=== PATIENT | female | born 1990 | race Caucasian/White ===

== ENCOUNTER 2016-07-01 12:38 | Emergency (ER) | payer OTHER ==
--- NOTE | 2016-07-01 13:41 | UC ---
Abdominal Pain Female HPI - HPI Summary HPI Summary: LLQ ABDOMINAL PAIN X 3 DAYS NO FEVER, NO N/V/D/C , NO URINARY SX - History of Current Complaint Chief Complaint: UCAbdominalPain Stated Complaint: LOWER LEFT ABD PAIN 2DAYS Time Seen by Provider: 07/01/16 13:22 Hx Obtained From: Patient Hx Last Menstrual Period: 06/27/16 ?: No Onset/Duration: Gradual Onset, Lasting Days - 3, Still Present Timing: Constant Severity Initially: Moderate Severity Currently: Moderate Location: Discrete At: LUQ, Discrete At: LLQ Radiates: No Character: Aching, Cramping Aggravating Factor(s): Nothing Alleviating Factor(s): Nothing Associated Signs and Symptoms: Positive: Vaginal Bleeding - HAVING HER PERIOD. Negative: Diaphoresis, Fever, Cough, Chest Pain, Dizzy, Back Pain, Constipation , Blood in Stool, Urinary Symptoms, Decreased Appetite, Vaginal Discharge, Nausea, Vomiting, Diarrhea, Other: Allergies/Adverse Reactions: Allergies Allergy/AdvReac Type Severity Reaction Status Date / Time No Known Allergies Allergy Verified 07/01/16 13:05 Home Medications: Home Medications Ibuprofen TAB* [Advil TAB*] 600 mg PO Q8H PRN 07/01/16 [History Confirmed ] PMH/Surg Hx/FS Hx/Imm Hx Previously Healthy: Yes - Surgical History Surgical History: Yes Surgery Procedure, Year, and Place: , 2013, [facility] - Family History Known Family History: Positive: Hypertension - Social History Alcohol Use: None Substance Use Type: None Smoking Status (MU): Never Smoked Tobacco - Immunization History Most Recent Influenza Vaccination: Not the season Review of Systems Constitutional: Negative Skin: Negative Eyes: Negative, Diplopia Respiratory: Negative Cardiovascular: Negative Gastrointestinal: Abdominal Pain All Other Systems Reviewed And Are Negative: Yes Physical Exam Triage Information Reviewed: Yes Appearance: Well-Appearing, No Pain Distress, Obese Vital Signs: Initial Vital Signs Temp 98.1 F 07/01/16 13:06 Pulse 78 07/01/16 13:06 Resp 16 07/01/16 13:06 BP 126/83 07/01/16 13:06 Pulse Ox 100 07/01/16 13:06 Vital Signs Reviewed: Yes Eye Exam: Normal Eyes: Positive: Conjunctiva Clear ENT: Positive: Normal ENT inspection, Hearing grossly normal, Pharynx normal Neck: Positive: Supple, Nontender, No Lymphadenopathy Respiratory: Positive: Chest non-tender, Lungs clear, Normal breath sounds Cardiovascular: Positive: RRR, No Murmur, Pulses Normal Abdomen Description: Positive: Soft. Negative: CVA Tenderness (R), CVA Tenderness (L), Distended, Guarding Abd Pain Female Course/Dx - Differential Dx/Diagnosis Provider Diagnoses: LLQ ABDOMINAL PAIN Discharge - Discharge Plan Condition: Stable Disposition: HOME Prescriptions: Naproxen [Naproxen 500 MG TABS] 500 mg PO BID #20 tab Patient Education Materials: Abdominal Pain (ED) Referrals: No Primary Care Phys,NOPCP [Primary Care Provider] - 2 Days Additional Instructions: ? overian cyst go to ED if increase in pain , may need to do abd US or CT for evaluation
[2016-07-01 14:23] VITALS: BP 137/84
== END 2016-07-01 14:23 | disposition home or self-care (01) ==
LOC: UCCORT 12:38
DX: R10.32 Left lower quadrant pain (principal); R03.0 Elevated blood-pressure reading, without diagnosis of hypertension
CPT/HCPCS: 81003; 84702; 99212; G0463

== ENCOUNTER 2016-10-20 14:51 | Emergency (ER) | payer OTHER | END 2016-10-20 16:42 | disposition left against medical advice (07) | LOC: UCCORT 14:51 | DX: M25.512 Pain in left shoulder (principal); Z53.21 Procedure and treatment not carried out due to patient leaving prior to being seen by health care provider ==

== ENCOUNTER 2017-06-25 17:19 | Emergency (ER) | payer OTHER ==
[2017-06-25 20:15] VITALS: BP 131/93
--- NOTE | 2017-06-25 20:31 | UC ---
FLU HPI - HPI Summary HPI Summary: 27 y/o female presents to the urgent care c/o productive cough, sore throat, body aches, left ear pain, chills and BURGESS since yesterday. She hasn't taken her temp. But has felt w/ sweats at times. Mild nasal congestion. Pt thinks she has a pneumonia or the flu. She has been exposed to the flu. Pain is 6/10. Pt deneis SOB, chest pain, abdominal pain, N/V/D. She has taking Tylenol PO to alleviate symptoms. Last dose taken at 1700PM - History of Current Complaint Hx Obtained From: Patient Hx Last Menstrual Period: 06/12/17 Onset/Duration: Gradual Onset, Lasting Days - 1 day, Still Present, Worse Since - this morning Severity Currently: Mild Severity Initially: Moderate Pain Intensity: 6 Pain Scale Used: 0-10 Numeric Associated Signs & Symptoms: Positive: Fever, Myalgia, Cough, Headache Related Hx: Possible Flu/Infectious Exposure - Risk Factors Influenza Risk Factors: Negative <Diana Guallpa - Last Filed: 06/26/17 00:53> <Adriana Chavez - Last Filed: 06/26/17 19:03> - History of Current Complaint Chief Complaint: UCRespiratory Stated Complaint: FLU SYMPTOMS Time Seen by Provider: 06/25/17 20:29 - Allergy/Home Medications Allergies/Adverse Reactions: Allergies Allergy/AdvReac Type Severity Reaction Status Date / Time No Known Allergies Allergy Verified 06/25/17 20:08 PMH/Surg Hx/FS Hx/Imm Hx Previously Healthy: Yes - Pt denies PMHX - Surgical History Surgical History: Yes Surgery Procedure, Year, and Place: , [facility], [facility] - Family History Known Family History: Positive: Hypertension - Social History Occupation: Employed Full-time Lives: With Family Alcohol Use: None Substance Use Type: None Smoking Status (MU): Never Smoked Tobacco - Immunization History Most Recent Influenza Vaccination: Not the season <Diana Guallpa - Last Filed: 06/26/17 00:53> Review of Systems Constitutional: Chills, Fatigue, Other - body aches, Skin: Negative Eyes: Negative ENT: Sore Throat, Nasal Discharge Respiratory: Cough Cardiovascular: Negative Gastrointestinal: Negative Genitourinary: Negative Motor: Negative Neurovascular: Negative Musculoskeletal: Negative Neurological: Headache Psychological: Negative Is Patient Immunocompromised?: No All Other Systems Reviewed And Are Negative: Yes <Diana Guallpa - Last Filed: 06/26/17 00:53> Physical Exam - Summary Physical Exam Summary: VITAL SIGNS: Reviewed. GENERAL: Patient is a well developed and female nourished who is sitting comfortable in the examining table. Patient is not in any acute respiratory distress. HEAD AND FACE: No signs of trauma. No ecchymosis, hematomas or skull depressions. No sinus tenderness. edematous erythematous nasal mucosa with yellowish discharge, EYES: PERRLA, EOMI x 2, No injected conjunctiva, clear watery eyes, no nystagmus. No photophobia. EARS: Hearing grossly intact. Ear canals and tympanic membranes are within normal limits. MOUTH: Positive pharynx with erythema, no exudates,no palatal petechiae. no B/ L tonsillar enlargement Uvula in midline. NECK: Supple, trachea is midline, Positive anterior cervical lymphadenopathy, no JVD, no carotid bruit, no c-spine tenderness, neck with full ROM. No meningeal signs, no Kernig's or brudzinskis signs. CHEST: Symmetric, no tenderness at palpation LUNGS: Clear to auscultation bilaterally. No wheezing or crackles. CVS: Regular rate and rhythm, S1 and S2 present, no murmurs or gallops appreciated. ABDOMEN: Soft, non-tender. No signs of distention. No rebound no guarding, and no masses palpated. Bowel sounds are normal. EXTREMITIES: FROM in all major joints, no edema, no cyanosis or clubbing. NEURO: Alert and oriented x 3. No acute neurological deficits. Speech is normal and follows commands. SKIN: Dry and warm Triage Information Reviewed: Yes Vital Signs: Initial Vital Signs Temp 100.1 F 06/25/17 20:08 Pulse 103 06/25/17 20:08 Resp 20 06/25/17 20:08 BP 131/93 06/25/17 20:08 Pulse Ox 99 06/25/17 20:08 <Diana Guallpa - Last Filed: 06/26/17 00:53> Vital Signs: Initial Vital Signs Temp 100.1 F 06/25/17 20:08 Pulse 103 06/25/17 20:08 Resp 20 06/25/17 20:08 BP 131/93 06/25/17 20:08 Pulse Ox 99 06/25/17 20:08 <Adriana Chavez - Last Filed: 06/26/17 19:03> Flu Course/Dx - Course Course Of Treatment: 27 y/o female presents to the urgent care c/o productive cough, sore throat, body aches, left ear pain, chills and BURGESS since yesterday. She hasn't taken her temp. But has felt w/ sweats at times. Mild nasal congestion. Pt thinks she has a pneumonia or the flu. She has been exposed to the flu. Pain is 6/10. Pt deneis SOB, chest pain, abdominal pain, N/V/D. She has taking Tylenol PO to alleviate symptoms. Last dose taken at 1700PM.Pt w/ viral syndrome on examination.Influenza A&B ordered: result:negative. Pt w/ exposure to influenza. Despite result Pt will be Tx w/ Rx Tamiflu and Tessalon tabs PO to alleviates symptoms. Advised on hand washing and wear a mask to avoid spreading. Pt advised to rest, increase fluid intake, eat well and avoid strenuous exercise. If symptoms do not improve or worsen advised to return to the urgent care or f/u with her PCP for further evaluation and treatment. Pt's BP is elevated today advised to decrease salt in diet, monitor BP and f/u with PCP for further management.Pt understood and agreed with plan of care. - Differential Dx/Diagnosis Differential Diagnosis/HQI/PQRI: Bronchitis, Influenza, Pneumonia, Upper Respiratory Infection Provider Diagnoses: 1- Viral syndrome. 2-Cough. 3-Elevated BP w/o Hx of HTN <Diana Guallpa - Last Filed: 06/26/17 00:53> Discharge <Diana Guallpa - Last Filed: 06/26/17 00:53> <Adriana Chavez - Last Filed: 06/26/17 19:03> - Discharge Plan Condition: Stable Disposition: HOME Prescriptions: Benzonatate CAP* [Tessalon 100 MG CAP*] 100 mg PO TID PRN #21 cap PRN Reason: Cough Oseltamivir CAP* [Tamiflu CAP*] 75 mg PO BID #10 cap Patient Education Materials: Viral Syndrome (ED), Low-Sodium Diet (ED) Forms: *Work Release Referrals: [facility] [Outside] - 3 Days Additional Instructions: 1- Please take the full course of the antiviral to avoid resistance. Encourage hand washing and wear a mask to avoid spreading. 2-Please continue taking Tylenol PO q6-8hrs prn as instructed after meals to alleviate fever, and sore throat. Increase fluid intake, eat well, rest and avoid strenuous exercise 3-Take Tessalon tabs PO to alleviate cough 4-If symptoms do not improve or worsen please return to the urgent care or f/u with your PCP in 2 days for further evaluation and treatment. 5- Your BP is elevated today. please decrease salt in your diet, monitor BP and if it continues to be elevated please f/u with your PCP for further management Attestation Statement User Type: Provider - I was available for consult. This patient was seen by the [facility]. The patient was not presented to, seen by, or examined by me. Walker <Adriana Chavez - Last Filed: 06/26/17 19:03>
== END 2017-06-25 21:08 | disposition home or self-care (01) ==
LOC: UCCORT 17:19
DX: B34.9 Viral infection, unspecified (principal); R03.0 Elevated blood-pressure reading, without diagnosis of hypertension; Z20.828 Contact with and (suspected) exposure to other viral communicable diseases
CPT/HCPCS: 87502; 99212; G0463

== ENCOUNTER 2017-07-27 15:41 | Emergency (ER) | payer OTHER ==
--- NOTE | 2017-07-27 17:19 | UC ---
Ear Complaint HPI - HPI Summary HPI Summary: Pt presents with left ear pain that began yesterday. She has a history of ear infections and this feels the same as past ones. Has not taken anything OTC. Denies fever, chills, sore throat, cough, sinus symptoms, headache, dizziness. - History of Current Complaint Stated Complaint: EAR PAIN Time Seen by Provider: 07/27/17 17:19 Hx Obtained From: Patient Hx Last Menstrual Period: 06/12/17 Onset/Duration: Sudden Onset Severity Initially: Mild Severity Currently: Moderate Pain Intensity: 6 Pain Scale Used: 0-10 Numeric - Allergies/Home Medications Allergies/Adverse Reactions: Allergies Allergy/AdvReac Type Severity Reaction Status Date / Time No Known Allergies Allergy Verified 07/27/17 17:18 Home Medications: Home Medications Ibuprofen TAB* [Motrin TAB* 800 MG] 800 mg PO Q8H MDD DISCOMFORT 07/27/17 [ History Confirmed 07/27/17] PMH/Surg Hx/FS Hx/Imm Hx Previously Healthy: Yes - Surgical History Surgical History: Yes Surgery Procedure, Year, and Place: , 2013, [facility] - Family History Known Family History: Positive: Hypertension - Social History Occupation: Employed Full-time Lives: With Family Alcohol Use: None Substance Use Type: None Smoking Status (MU): Never Smoked Tobacco - Immunization History Most Recent Influenza Vaccination: Not the season Review of Systems Constitutional: Negative Skin: Negative Eyes: Negative ENT: Ear Ache Respiratory: Negative Cardiovascular: Negative Gastrointestinal: Negative Musculoskeletal: Negative Neurological: Negative Psychological: Negative All Other Systems Reviewed And Are Negative: Yes Physical Exam - Summary Physical Exam Summary: GENERAL: NAD. WDWN. No pain distress. SKIN: No rashes, sores, ulcers, masses, lesions. HEENT: Head: AT/NC Eyes: Conjunctiva clear without inflammation or discharge. Ears: Hearing grossly normal. Left TM with moderate erythema and bulging. No drainage. Posterior auricular mild tenderness. Nose: Nasal mucosa pink and moist. NTTP maxillary and frontal sinus. Throat: Posterior oropharynx without exudates, erythema, or tonsillar enlargement. Uvula midline. NECK: Supple. Nontender. No lymphadenopathy. CHEST: CTAB. No r/r/w. No accessory muscle use. Breathing comfortably and in no distress. CV: RRR. Without m/r/g. Pulses intact. Brisk cap refill. NEURO: Alert. CN II-XII grossly intact. PSYCH: Age appropriate behavior. Triage Information Reviewed: Yes Ear Complaint Course/Dx - Course Course Of Treatment: Left otitis media - Differential Dx/Diagnosis Provider Diagnoses: Left otitis media Discharge - Sign-Out/Discharge Documenting (check all that apply): Discharge - Discharge Plan Condition: Stable Disposition: HOME Prescriptions: Amoxicillin PO (*) [Amoxicillin 500 MG CAP*] 500 mg PO Q12H #14 cap Patient Education Materials: Ear Infection (ED) Referrals: No Primary Care Phys,NOPCP [Primary Care Provider] - Additional Instructions: If you develop a fever, shortness of breath, chest pain, new or worsening symptoms - please call your PCP or go to the ED. Your blood pressure was high at todays visit. Please see your primary provider within 4 weeks for recheck and re-evaluation. - Billing Disposition and Condition Condition: STABLE Disposition: HOME
[2017-07-27 17:23] VITALS: BP 133/87
== END 2017-07-27 17:45 | disposition home or self-care (01) ==
LOC: UCCORT 15:41
DX: H66.92 Otitis media, unspecified, left ear (principal)
CPT/HCPCS: 99212; G0463

== ENCOUNTER 2018-04-11 11:38 | Emergency (ER) | payer OTHER ==
[2018-04-11 12:42] VITALS: BP 122/73
--- NOTE | 2018-04-11 13:06 | UC ---
Respiratory Complaint HPI - HPI Summary HPI Summary: cough x 7 days + nasal congestion , sore throat, no fever, no chills cough is dry - History of Current Complaint Chief Complaint: UCGeneralIllness Stated Complaint: COUGH, CONGESTION Time Seen by Provider: 04/11/18 12:55 Hx Obtained From: Patient Hx Last Menstrual Period: 01/03/18 ?: Yes Onset/Duration: Gradual Onset, Lasting Weeks - 1, Still Present Timing: Constant Severity Initially: Moderate Severity Currently: Moderate Pain Intensity: 0 Character: Cough: Nonproductive Aggravating Factors: Exertion, Deep Breaths Alleviating Factors: Nothing Associated Signs And Symptoms: Positive: URI, Nasal Congestion. Negative: Dyspnea, Fever, Chills, Pleuritic Chest Pain, Wheezing, Hemoptysis, Dizziness, Calf Pain, Calf Swelling - Allergies/Home Medications Allergies/Adverse Reactions: Allergies Allergy/AdvReac Type Severity Reaction Status Date / Time No Known Allergies Allergy Verified 04/11/18 12:42 Home Medications: Home Medications Antidepressant 04/11/18 [History] Pnv No.95/Ferrous Fum/Folic AC [ Vitamin & Minera 28-0.8 mg] 1 tab PO DAILY 04/11/18 [History Confirmed 04/11/18] PMH/Surg Hx/FS Hx/Imm Hx Previously Healthy: Yes - Surgical History Surgical History: Yes Surgery Procedure, Year, and Place: , 2013, [facility] - Family History Known Family History: Positive: Hypertension - Social History Alcohol Use: None Substance Use Type: None Smoking Status (MU): Never Smoked Tobacco - Immunization History Most Recent Influenza Vaccination: Not the Review of Systems All Other Systems Reviewed And Are Negative: Yes Constitutional: Positive: Negative Skin: Positive: Negative Eyes: Positive: Negative ENT: Positive: Sore Throat, Ear Ache, Nasal Discharge Respiratory: Positive: Cough Cardiovascular: Positive: Negative Is Patient Immunocompromised?: No Physical Exam Triage Information Reviewed: Yes Appearance: Well-Appearing, No Pain Distress, Well-Nourished Vital Signs: Initial Vital Signs Temp 98.1 F 04/11/18 12:39 Pulse 100 04/11/18 12:39 Resp 20 04/11/18 12:39 BP 122/73 04/11/18 12:39 Pulse Ox 100 04/11/18 12:39 Vital Signs Reviewed: Yes Eye Exam: Normal ENT: Positive: Normal ENT inspection, Hearing grossly normal, Pharyngeal erythema, Nasal congestion, TMs normal. Negative: Nasal drainage, TM bulging, TM dull, TM red, Tonsillar swelling, Tonsillar exudate Neck exam: Normal Neck: Positive: Supple, Nontender, No Lymphadenopathy Respiratory: Positive: Chest non-tender, Lungs clear, Normal breath sounds Cardiovascular: Positive: RRR, No Murmur, Pulses Normal UC Diagnostic Evaluation - Laboratory O2 Sat by Pulse Oximetry: 100 Respiratory Course/Dx - Differential Dx/Diagnosis Provider Diagnosis: URI (upper respiratory infection) Discharge - Sign-Out/Discharge Documenting (check all that apply): Patient Departure All imaging exams completed and their final reports reviewed: No Studies - Discharge Plan Condition: Stable Disposition: HOME Patient Education Materials: Upper Respiratory Infection (ED) Referrals: Olinda Rendon MD [Primary Care Provider] - If Needed - Billing Disposition and Condition Condition: STABLE Disposition: Home
== END 2018-04-11 13:10 | disposition home or self-care (01) ==
LOC: UCCORT 11:38
DX: R06.9 Unspecified abnormalities of breathing (principal)
CPT/HCPCS: 99211; G0463

== ENCOUNTER 2018-10-30 14:39 | Emergency (ER) | payer OTHER ==
[2018-10-30 17:21] VITALS: BP 120/74
--- NOTE | 2018-10-30 17:48 | UC ---
Skin Complaint HPI - HPI Summary HPI Summary: 2-1/2 WEEKS AGO PATIENT DELIVERED A BABY VIA AND HAD A PIV TO HER RIGHT WRIST. PATIENT STATES THAT FOR THE PAST WEEK SHE HAS HAD A TENDER SWELLING/FIRMNESS IN THE AREA. NO REDNESS OF THE SKIN. NO DRAINAGE. NO CP, SOB OR PALPITATIONS. - History of Current Complaint Chief Complaint: UCUpperExtremity Time Seen by Provider: 10/30/18 17:20 Stated Complaint: SWOLLEN VEIN FROM IV Hx Obtained From: Patient Hx Last Menstrual Period: 01/03/18 Onset/Duration: Gradual Onset, Lasting Days, Still Present Timing: Constant Onset Severity: Mild Current Severity: Mild Pain Intensity: 2 Pain Scale Used: 0-10 Numeric Character: Pain Aggravating Factor(s): Touch Alleviating Factor(s): Nothing Associated Signs & Symptoms: Positive: Tenderness. Negative: Rash, Red Streaks - Allergy/Home Medications Allergies/Adverse Reactions: Allergies Allergy/AdvReac Type Severity Reaction Status Date / Time No Known Allergies Allergy Verified 10/30/18 15:26 Home Medications: Home Medications Ferrous Gluconate [Iron] 236 mg PO DAILY 10/30/18 [History Confirmed 10/30/18] Ibuprofen TAB* [Motrin TAB* 400 MG] 400 mg PO Q6H 10/30/18 [History Confirmed ] PMH/Surg Hx/FS Hx/Imm Hx Previously Healthy: Yes - Surgical History Surgical History: Yes Surgery Procedure, Year, and Place: , 2013, 2018 [facility] - Family History Known Family History: Positive: Hypertension - Social History Alcohol Use: None Substance Use Type: None Smoking Status (MU): Never Smoked Tobacco - Immunization History Most Recent Influenza Vaccination: Not the season Review of Systems All Other Systems Reviewed And Are Negative: Yes Constitutional: Positive: Negative Skin: Positive: Negative Respiratory: Positive: Negative Cardiovascular: Positive: Negative Gastrointestinal: Positive: Negative Musculoskeletal: Positive: Decreased ROM, Edema Physical Exam Triage Information Reviewed: Yes Appearance: Well-Appearing, No Pain Distress, Well-Nourished Vital Signs: Initial Vital Signs Temp 97.7 F 10/30/18 15:22 Pulse 86 10/30/18 15:22 Resp 16 10/30/18 15:22 BP 120/80 10/30/18 15:22 Pulse Ox 100 10/30/18 15:22 Vital Signs Reviewed: Yes Eyes: Positive: Conjunctiva Clear ENT: Positive: Hearing grossly normal Neck: Positive: Supple Respiratory Exam: Normal Cardiovascular Exam: Normal Abdomen Description: Positive: Soft Musculoskeletal: Positive: Other: - NONSPECIFIC FIRMNESS/FULLNESS RIGHT DORSAL WRIST WITH TENDERNESS. NO REDNESS Neurological: Positive: Alert Psychological: Positive: Age Appropriate Behavior Skin: Negative: Rashes Course/Dx - Course Course Of Treatment: PATIENT WITH PROBABLE SUPERFICIAL PHLEBITIS RELATED TO PIV PLACEMENT SEVERAL WEEKS AGO. ADVISED HOT COMPRESSES AND IBUPROFEN FOR DISCOMFORT. ULTRASOUND NOT AVAILABLE IN A TIMELY MANNER HERE IN THE UC. DISCUSSED TRANSFER TO ER HOWEVER PATIENT OPTS TO FOLLOW-UP WITH HER PCP TOMORROW FOR FURTHER EVALUATION. ADVISED TO GO TO THE ER TONIGHT WITHOUT FAIL IF HER SYMPTOMS WORSEN. - Diagnoses Provider Diagnosis: Superficial phlebitis Discharge - Sign-Out/Discharge Documenting (check all that apply): Patient Departure All imaging exams completed and their final reports reviewed: No Studies - Discharge Plan Condition: Stable Disposition: HOME Patient Education Materials: Phlebitis (ED) Referrals: Olinda Rendon MD [Primary Care Provider] - 1 Day Additional Instructions: YOU MAY BE EXPERIENCING A SUPERFICIAL PHLEBITIS FROM YOUR PERIPHERAL IV PLACEMENT SEVERAL WEEKS AGO. LOW SUSPICION FOR DVT. I RECOMMEND WARM COMPRESSES AND IBUPROFEN FOR DISCOMFORT. FOLLOW-UP WITH YOUR PCP TOMORROW. YOU MAY BENEFIT FROM OUTPATIENT ULTRASOUND. GO TO THE ER WITHOUT FAIL IF YOU DEVELOP WORSENING PAIN, SWELLING, FEVER, SHORTNESS OF BREATH, RAPID HEARTBEAT OR ANY OTHER CONCERNING SYMPTOMS. - Billing Disposition and Condition Condition: STABLE Disposition: Home
== END 2018-10-30 17:44 | disposition home or self-care (01) ==
LOC: UCEAST 14:39
DX: O87.0 Superficial thrombophlebitis in the puerperium (principal)
CPT/HCPCS: 99211; G0463